=== PATIENT | female | born 1975 | race Asian ===

== ENCOUNTER 2024-12-19 07:40 | Outpatient (CLI) | payer BC ==
[2024-12-19 08:32] LABS: BHCG - Serum Negative (NEGATIVE); Pregs Control Background? CLEAR/WHITE (CLR/WHITE); Pregs Control Bar Appear? YES (CONTROL BAR)
== END 2024-12-19 07:41 | disposition home or self-care (01) ==
LOC: NM 07:40
PROVIDERS: ATTEND Internal Medicine Gastroenterology
DX: Z32.00 Encounter for pregnancy test, result unknown (principal); R10.13 Epigastric pain; K59.09 Other constipation
CPT/HCPCS: 36415; 78264; 84703; A9541